=== PATIENT | female | born 2000 | race Two or more races ===

== ENCOUNTER 2021-10-11 17:00 | Inpatient (IN) | payer MEDICAID, OTHER ==
[~2021-10-11] VITALS: Ht 160 cm; Wt 62.0 kg
[2021-10-11] VITALS (9 sets, daily range): BP systolic 144–164; BP diastolic 89–105
[2021-10-11] MEDS ORDERED: NALOXONE HCL 1MG/ML 2ML SYRINGE ONE (17:07)
[2021-10-11] MEDS ORDERED: ETOMIDATE (2MG/ML) 20ML VIAL IV ONE ×2 (17:15→17:30)
[2021-10-11] MEDS ORDERED: ROCURONIUM 10MG/ML 10ML VIAL IV ONE ×2 (17:15→17:30)
[2021-10-11] MEDS ORDERED: NALOXONE HCL 1MG/ML 2ML SYRINGE IV ONE (17:45)
[2021-10-11 17:53] LABS: Basophils # (auto) 0.1 10 ^3/uL (0-0.2); Basophils % (auto) 0.6 % (0.0-2.0); Eosinophils # (auto) 0 10 ^3/uL (0-0.8); Hematocrit 48.6 % (36.0-46.0); Hemoglobin 16.7 g/dL (12.2-16.2); Lymphocytes # (auto) 2.7 10 ^3/uL (0.4-5.4); Lymphocytes % (auto) 13.6 % (10.0-50.0); Mean Corpuscular Hemoglobin 31.9 pg (28.0-32.0); Mean Corpuscular Hgb Conc. 34.4 g/dL (32.0-36.0); Mean Corpuscular Volume 92.6 fL (80.0-100.0); Monocytes % (auto) 4.9 % (0.0-12.0); Neutrophils # (auto) 16.2 10 ^3/uL (1.6-8.6); Neutrophils % (auto) 80.9 % (37.0-80.0); Nucleated Red Blood Cells % 0.1 %; Red Blood Cells 5.25 10^6/uL (4.0-5.20); Red Cell Distribution Width 12.9 % (11.8-14.3); White Blood Cell 20.1 10^3/uL (4.4-10.8)
[2021-10-11] MEDS ORDERED: IOHEXOL 350 MG/ML 100ML IJ ONE (18:01)
[2021-10-11 18:09] LABS: Salicylate < 1.7 mg/dL (2.8-20.0)
[2021-10-11 18:10] LABS: Calcium 9.2 mg/dL (8.5-10.1); Chloride 113 mmol/L (98-107); Potassium 4.1 mmol/L (3.5-5.1); Sodium 147 mmol/L (136-145)
[2021-10-11 18:11] LABS: Lactic Acid w/Reflex 2.7 mmol/L (0.4-2.0)
[2021-10-11 18:13] LABS: Alanine Aminotransferase 21 U/L (13-56); Albumin 4.2 g/dL (3.4-5.0); Anion Gap 10 (5-15); Aspartate Aminotransferase 24 U/L (15-37); BUN/Creatinine Ratio 8.6; Blood Alcohol < 3.0 mg/dL (0-5); Blood Urea Nitrogen 9 mg/dL (7-18); Carbon Dioxide 24 mmol/L (21-32); GFR African American 86 mL/min; GFR Non-African American 71 mL/min; Glucose 148 mg/dL (74-106); Magnesium 2.3 mg/dL (1.6-2.6)
[2021-10-11 18:16] LABS: Alkaline Phosphatase 99 U/L (45-117); Bilirubin, Total 0.5 mg/dL (0.2-1.0)
[2021-10-11 18:18] LABS: Acetaminophen < 2.0 ug/mL (10-30)
[2021-10-11 18:27] LABS: Beta HCG, Quantitative < 1 mlU/mL (1-3)
[2021-10-11] MEDS ORDERED: PROPOFOL 100 ML IV ONE (18:30)
[2021-10-11] MEDS: PROPOFOL 100 ML IV SCH (18:30)
[2021-10-11 18:51] LABS: INR 1.24 (0.9-1.15); Partial Thromboplastin Time 21.9 sec (23.6-33.0)
[2021-10-11 20:13] LABS: Amphetamine Screen, Urine NEGATIVE (NEGATIVE); Barbiturate Scree,Urine NEGATIVE (NEGATIVE); Benzodiazephine Screen, Urine NEGATIVE (NEGATIVE); Cannabinoid Screen, Urine NEGATIVE (NEGATIVE); Cocaine Screen, Urine NEGATIVE (NEGATIVE); Opiate Scree,Urine NEGATIVE (NEGATIVE); Phencyclidine Screen, Urine NEGATIVE (NEGATIVE)
[2021-10-11 20:16] LABS: Urine Bacteria FEW /hpf (None Seen); Urine Blood Negative /uL (Negative); Urine Mucus FEW (None Seen); Urine Specific Gravity 1.028 (1.001-1.035); Urine WBC 1 /hpf (0 - 5)
[2021-10-11] MEDS ORDERED: MORPHINE SULFATE INJECTION 2 MG/ML SYRG IV PRN (21:15)
[2021-10-11] MEDS ORDERED: LACTATED RINGER'S 1,000 ML IV ONE (21:15)
[2021-10-11] MEDS ORDERED: SODIUM CHLORIDE 0.9% 1,000 ML IV SCH (21:15)
[2021-10-11] MEDS ORDERED: ACETAMINOPHEN 325 MG TAB PO PRN (21:15)
[2021-10-11] MEDS ORDERED: ONDANSETRON HCL 4 MG/2 ML VIAL IV PRN (21:15)
[2021-10-11] MEDS ORDERED: NITROGLYCERIN 0.4 MG SL TAB SL PRN (21:15)
[2021-10-11] MEDS: PIPERACILLIN-TAZOB 3.375GM 100 ML IV SCH (21:58)
[2021-10-11] MEDS: CLINDAMYCIN 600MG IV 50 ML IV SCH (21:59)
[2021-10-11 23:57] LABS: BUN/Creatinine Ratio 10.8; Calcium 8.7 mg/dL (8.5-10.1); Potassium 4.2 mmol/L (3.5-5.1)
[2021-10-12] VITALS (94 sets, daily range): BP systolic 101–163; BP diastolic 51–100
[2021-10-12] MEDS ORDERED: D5W/SOD CHL 0.45% 1,000 ML IV SCH (01:00)
[2021-10-12] MEDS: PROPOFOL 100 ML IV SCH ×2 (01:56→21:41)
[2021-10-12 04:17] LABS: Basophils # (auto) 0.1 10 ^3/uL (0-0.2); Basophils % (auto) 0.6 % (0.0-2.0); Eosinophils # (auto) 0 10 ^3/uL (0-0.8); Hematocrit 44.7 % (36.0-46.0); Hemoglobin 15.7 g/dL (12.2-16.2); Lymphocytes # (auto) 2.9 10 ^3/uL (0.4-5.4); Lymphocytes % (auto) 14.4 % (10.0-50.0); Mean Corpuscular Hemoglobin 32.8 pg (28.0-32.0); Mean Corpuscular Hgb Conc. 35.2 g/dL (32.0-36.0); Mean Corpuscular Volume 93.2 fL (80.0-100.0); Monocytes % (auto) 9.9 % (0.0-12.0); Neutrophils # (auto) 15.3 10 ^3/uL (1.6-8.6); Neutrophils % (auto) 75.1 % (37.0-80.0); Red Cell Distribution Width 12.7 % (11.8-14.3); White Blood Cell 20.3 10^3/uL (4.4-10.8)
[2021-10-12 04:21] LABS: Potassium 4.3 mmol/L (3.5-5.1)
[2021-10-12 04:26] LABS: Albumin 3.7 g/dL (3.4-5.0); BUN/Creatinine Ratio 9.8; Bilirubin, Total 0.7 mg/dL (0.2-1.0); Calcium 8.9 mg/dL (8.5-10.1); Total Protein 7.4 g/dL (6.4-8.2)
[2021-10-12] MEDS: CLINDAMYCIN 600MG IV 50 ML IV SCH (04:51)
[2021-10-12] MEDS: PIPERACILLIN-TAZOB 3.375GM 100 ML IV SCH ×2 (04:53)
[2021-10-12] MEDS: PANTOPRAZOLE 40 MG/10 ML VIAL INJ IV SCH (10:39)
[2021-10-12] MEDS ORDERED: MIDAZOLAM DRIP 50 mg/50mL 50 ML IV SCH (11:45)
[2021-10-13] VITALS (71 sets, daily range): BP systolic 105–142; BP diastolic 64–94
[2021-10-13] MEDS: PROPOFOL 100 ML IV SCH (04:15)
[2021-10-13 04:22] LABS: Basophils # (auto) 0.1 10 ^3/uL (0-0.2); Basophils % (auto) 0.4 % (0.0-2.0); Eosinophils # (auto) 0.2 10 ^3/uL (0-0.8); Eosinophils % (auto) 1.3 % (0.0-7.0); Hematocrit 38.8 % (36.0-46.0); Hemoglobin 13.5 g/dL (12.2-16.2); Lymphocytes # (auto) 1.8 10 ^3/uL (0.4-5.4); Lymphocytes % (auto) 14.7 % (10.0-50.0); Mean Corpuscular Hemoglobin 32.4 pg (28.0-32.0); Mean Corpuscular Hgb Conc. 34.9 g/dL (32.0-36.0); Mean Corpuscular Volume 92.8 fL (80.0-100.0); Monocytes # (auto) 0.9 10 ^3/uL (0-1.3); Monocytes % (auto) 6.9 % (0.0-12.0); Neutrophils # (auto) 9.6 10 ^3/uL (1.6-8.6); Neutrophils % (auto) 76.7 % (37.0-80.0); Red Blood Cells 4.17 10^6/uL (4.0-5.20); Red Cell Distribution Width 12.7 % (11.8-14.3); White Blood Cell 12.5 10^3/uL (4.4-10.8)
[2021-10-13 04:40] LABS: BUN/Creatinine Ratio 20.8; Calcium 8.9 mg/dL (8.5-10.1); Potassium 3.4 mmol/L (3.5-5.1)
[2021-10-13] MEDS ORDERED: cefTRIAXone 1GM/50ML D5W 50 ML IV ONE (10:00)
[2021-10-13] MEDS ORDERED: CLINDAMYCIN 600MG IV 50 ML IV ONE (10:00)
[2021-10-13] MEDS: PANTOPRAZOLE 40 MG/10 ML VIAL INJ IV SCH (11:38)
[2021-10-13] MEDS ORDERED: CLINDAMYCIN 600MG IV 50 ML IV SCH (14:00)
[2021-10-13] MEDS ORDERED: TEMAZEPAM 15 MG CAP PO ONE (23:30)
[2021-10-14] VITALS (13 sets, daily range): BP systolic 113–138; BP diastolic 68–103
[2021-10-14 05:04] LABS: Basophils # (auto) 0.1 10 ^3/uL (0-0.2); Basophils % (auto) 0.8 % (0.0-2.0); Eosinophils # (auto) 0.2 10 ^3/uL (0-0.8); Eosinophils % (auto) 1.6 % (0.0-7.0); Hematocrit 36.3 % (36.0-46.0); Hemoglobin 12.9 g/dL (12.2-16.2); Lymphocytes # (auto) 2.5 10 ^3/uL (0.4-5.4); Lymphocytes % (auto) 24.6 % (10.0-50.0); Mean Corpuscular Hgb Conc. 35.6 g/dL (32.0-36.0); Mean Corpuscular Volume 92.8 fL (80.0-100.0); Monocytes # (auto) 0.9 10 ^3/uL (0-1.3); Monocytes % (auto) 8.2 % (0.0-12.0); Neutrophils # (auto) 6.7 10 ^3/uL (1.6-8.6); Neutrophils % (auto) 64.8 % (37.0-80.0); Nucleated Red Blood Cells % 0.1 %; Red Blood Cells 3.91 10^6/uL (4.0-5.20); Red Cell Distribution Width 12.2 % (11.8-14.3); White Blood Cell 10.4 10^3/uL (4.4-10.8)
[2021-10-14 05:32] LABS: Calcium 8.6 mg/dL (8.5-10.1); Potassium 3.2 mmol/L (3.5-5.1)
[2021-10-14] MEDS ORDERED: POTASSIUM CHL 20 Meq TABLET PO ONE (06:45)
[2021-10-14] MEDS ORDERED: cefTRIAXone 1GM/50ML D5W 50 ML IV SCH (09:00)
[2021-10-14] MEDS: PANTOPRAZOLE 40 MG/10 ML VIAL INJ IV SCH ×2 (10:00→10:08)
[2021-10-14] MEDS ORDERED: POTASSIUM EFFERVESENT TAB 25 MEQ PO ONE (11:00)
== END 2021-10-14 11:48 | disposition home or self-care (01) | DRG 133 ==
LOC: ER 17:00 → EDBD 17:00 → TELE 21:14 → ICU WEST 23:23
PROVIDERS: ADMIT Nurse Practitioner; ATTEND Internal Medicine Pulmonary Disease
PROC: 5A1945Z Respiratory Ventilation, 24-96 Consecutive Hours (ICD-10-PCS; principal; 2021-10-11)
PROC: 0BH17EZ Insertion of Endotracheal Airway into Trachea, Via Natural or Artificial Opening (ICD-10-PCS; 2021-10-11)
DX: J96.01 Acute respiratory failure with hypoxia (principal); G92.8 Other toxic encephalopathy; G93.1 Anoxic brain damage, not elsewhere classified; Z20.822 Contact with and (suspected) exposure to COVID-19
CPT/HCPCS: 31500; 36415; 36600; 70450; 70551; 71045; 71260; 74177; 80048; 80053; 80307; 80320; 80329; 81001; 82010; 82140; 82805; 83605; 83735; 83880; 84443; 84484; 84702; 85025; 85610; 85730; 86850; 86900; 86901; 87040; 87070; 87077; 87081; 87086; 87186; 87205; 93005; 94003; 94640; 95819; 96361; 96374; 99291; C9113; G0378; J2250; J2543; J2704; J3490; J7060

== ENCOUNTER 2022-07-26 12:35 | Emergency (ER) | payer MEDICAID ==
[~2022-07-26] VITALS: Ht 157.5 cm; Wt 62.3 kg
[2022-07-26 13:29] LABS: Urine Bacteria NONE SEEN /hpf (None Seen); Urine Blood 2+ /uL (Negative); Urine Mucus FEW (None Seen); Urine Specific Gravity 1.012 (1.001-1.035); Urine WBC 422 /hpf (0 - 5); Urine WBC Clumps PRESENT /hpf (None Seen)
[2022-07-26 14:25] VITALS: BP 139/86
[2022-07-26] MEDS ORDERED: LEVO750T8 PO (14:38)
[2022-07-26] MEDS ORDERED: ACET-1158 PO (14:38)
== END 2022-07-26 14:49 | disposition home or self-care (01) ==
LOC: ER 12:35
DX: N12 Tubulo-interstitial nephritis, not specified as acute or chronic (principal); F10.90 Alcohol use, unspecified, uncomplicated
CPT/HCPCS: 81001

== ENCOUNTER 2023-01-03 10:10 | Emergency (ER) | payer MEDICAID ==
[~2023-01-03] VITALS: Ht 154.9 cm; Wt 61.3 kg
[~2023-01-03 10:10] MED LIST: ACET500T58 PO; LEVO750T8 PO
[2023-01-03 11:05] LABS: Basophils # (auto) 0.1 10 ^3/uL (0-0.2); Eosinophils # (auto) 0.1 10 ^3/uL (0-0.8); Lymphocytes # (auto) 2.5 10 ^3/uL (0.4-5.4); Lymphocytes % (auto) 27.8 % (10.0-50.0); Mean Corpuscular Hemoglobin 31.9 pg (28.0-32.0); Mean Corpuscular Hgb Conc. 34.2 g/dL (32.0-36.0); Mean Corpuscular Volume 93.3 fL (80.0-100.0); Monocytes # (auto) 0.7 10 ^3/uL (0-1.3); Monocytes % (auto) 7.4 % (0.0-12.0); Neutrophils # (auto) 5.7 10 ^3/uL (1.6-8.6); Neutrophils % (auto) 62.8 % (37.0-80.0); Red Blood Cells 4.71 10^6/uL (4.0-5.20); Red Cell Distribution Width 12.5 % (11.8-14.3); White Blood Cell 9.1 10^3/uL (4.4-10.8)
[2023-01-03 11:18] LABS: Urine Bacteria NONE SEEN /hpf (None Seen); Urine Blood Negative /uL (Negative); Urine Mucus FEW (None Seen); Urine Specific Gravity 1.019 (1.001-1.035); Urine WBC 2 /hpf (0 - 5)
[2023-01-03] MEDS ORDERED: NITR-87 PO (15:00)
[2023-01-03 15:21] VITALS: BP 130/62; PULSE 68; RESP 18; O2SAT 98
== END 2023-01-03 15:21 | disposition home or self-care (01) ==
LOC: ER 10:10
DX: O20.0 Threatened abortion (principal); O23.41 Unspecified infection of urinary tract in pregnancy, first trimester; N39.0 Urinary tract infection, site not specified; Z79.2 Long term (current) use of antibiotics; Z79.899 Other long term (current) drug therapy; Z3A.01 Less than 8 weeks gestation of pregnancy
CPT/HCPCS: 36415; 76801; 76817; 81001; 84702; 85025

== ENCOUNTER 2023-03-17 15:32 | Emergency (ER) | payer MEDICAID ==
[~2023-03-17] VITALS: Ht 154.9 cm; Wt 64.6 kg
[~2023-03-17 15:32] MED LIST changes: +NITR-87 PO
[2023-03-17 16:06] VITALS: BP 141/87; PULSE 92; RESP 16; TEMP 98.8; O2SAT 99
== END 2023-03-17 17:01 | disposition home or self-care (01) ==
LOC: ER 15:32
DX: O26.892 Other specified pregnancy related conditions, second trimester (principal); R10.2 Pelvic and perineal pain; Z79.2 Long term (current) use of antibiotics; Z79.899 Other long term (current) drug therapy; Z3A.16 16 weeks gestation of pregnancy; V49.9XXA Car occupant (driver) (passenger) injured in unspecified traffic accident, initial encounter; Y93.89 Activity, other specified; Y92.410 Unspecified street and highway as the place of occurrence of the external cause; Y99.8 Other external cause status
CPT/HCPCS: 76805